=== PATIENT | male | born 1940 | race Caucasian/White ===

== ENCOUNTER 2020-08-20 11:49 | Day surgery (SDC) | payer MEDICARE ==
[~2020-08-20] VITALS: Ht 170.3 cm; Wt 69.9 kg
[2020-08-20] VITALS (7 sets, daily range): BP systolic 121–133; BP diastolic 71–82; PULSE 61–98; TEMP 97.3
[2020-08-20] MEDS ORDERED: ELIQUIS 2.5 PO (12:41)
[2020-08-20] MEDS ORDERED: MASON NATURAL2000 IU PO (12:42)
[2020-08-20] MEDS ORDERED: TOPROL XL 25MG25 MG PO (12:43)
[2020-08-20] MEDS ORDERED: NATURAL E400 IU PO (12:43)
[2020-08-20 12:47] LABS: INR 1.3 (0.8-3.0); PROTHROMBIN TIME 14.2 SECONDS (9.7-12.8)
[2020-08-20 12:50] LABS: POTASSIUM 4.3 mmol/L (3.4-5.0)
[2020-08-20 13:23] LABS: THYROID STIMULATING HORMONE 1.31 uIU/mL (0.465-4.680)
== END 2020-08-20 16:30 | disposition home or self-care (01) ==
LOC: COL.CAR 11:49
PROVIDERS: Internal Medicine Cardiovascular Disease
DX: I48.19 Other persistent atrial fibrillation (principal); I34.0 Nonrheumatic mitral (valve) insufficiency; Z79.01 Long term (current) use of anticoagulants; Z79.899 Other long term (current) drug therapy
CPT/HCPCS: J2704; J7030